=== PATIENT | female | born 1985 | race African-American/Black ===

== ENCOUNTER 2016-02-24 20:03 | Emergency (ER) | payer SELFPAY ==
[2016-02-24 20:17] VITALS: BP 129/73; PULSE 100; TEMP 99.3; BMI 39.3
--- NOTE | 2016-02-24 20:29 | EDPRACDOC ---
- General Information Chief Complaint: Sore Throat Stated Complaint: SORE THROAT Time Seen by Provider: 02/24/16 20:24 Information Source: Patient Mode Of Arrival: Car Home Medications: Home Medications Clindamycin [Cleocin] 300 mg PO TID #60 capsule 02/24/16 Allergies/Adverse Reactions: Allergies Allergy/AdvReac Type Severity Reaction Status Date / Time Penicillins Allergy Hives* Verified 02/24/16 20:17 - History of Present Illness Onset: 2 DAYS HPI: SORE THROAT PAINFUL SWALLOWING AND CHILLS FOR SEVERAL DAYS. Sore Throat Symptoms: Reports: Pain White Spots Location: Reports: Other (TONSILS) Recent: Reports: None Relevant History of: Reports: None Pain Severity: Reports: Mild Urinary Output: Normal Oral Intake: Normal Associated Signs and Symptoms: Reports: Chills, Other (SORE THROAT) ED Past Medical History - History Reviewed Yes Nurses notes reviewed and agree except as marked Travel Outside of [place] in the Last 3 Months?: No No Past Medical History: Yes Patient has no past medical history - Social Medical History ETOH: None Substance Abuse: None Lives With: Other Lives In: Home EDM Review of Systems - Review of Systems ROS Negative Except as Marked: Yes All systems reviewed and were negative except as marked Constitutional: Chills. negative: Fever, Fatigue, Loss of Appetite, Weakness Eyes: No Symptoms Reported. negative: Redness, Blurred Vision, Double Vision, Discharge, Pain, Light Sensitive, Photophobia Ears: No Symptoms Reported. negative: Pain, Hearing Loss, Drainage, Ear Pulling Throat: Pain, Swelling, Lymphadenopathy, Erythema Nose: No Symptoms Reported. negative: Congestion, Bleeding, Discharge, Injection, Swelling, Deformity, Ecchymosis, Tender, Abrasion, Laceration Mouth: No Symptoms Reported. negative: Pain, Drooling Respiratory: No Symptoms Reported. negative: Cough, Brassy Cough, Barky Cough, Shortness of Breath, Wheezing, Hemoptysis Cardiovascular: No Symptoms Reported. negative: Chest Pain, Palpitations, Syncope, Edema, Orthopnea, PND, Skin Mottling, Cyanosis Gastrointestinal: No Symptoms Reported. negative: Pain, Constipation, Nausea, Vomiting, Diarrhea, Melena, Formula Intolerance Genitourinary: No Symptoms Reported. negative: Dysuria, Hematuria, Frequency, Discharge, Bleeding, Testicular Pain, Neurological: No Symptoms Reported. negative: Headache, Dizziness, Seizure, Numbness, Weakness, Speech Difficulty, Gait Difficulty Musculoskeletal: No Symptoms Reported. negative: Neck, Chestwall, Ribs, Back, Shoulder, Arm, Elbow, Forearm, Wrist, Hand, Pelvis, Hip, Femur, Knee, Leg, Ankle , Foot Integumentary: No Symptoms Reported. negative: Itching, Rash, Bruising, Wound Allergic/Immunologic: No Symptoms Reported. negative: Hives, Itching Hematologic: No Symptoms Reported. negative: Lymphadenopathy, Easy Bruising, Easy Bleeding Endocrine: No Symptoms Reported. negative: Weight Gain, Weight Loss Psychiatric: No Symptoms Reported. negative: Anxiety, Depression, Hallucinations, Insomnia, Suicidal - Physical Exam Constitutional: No apparent distress, Alert (Awake) Oriented to: Time, Person, Place Last recorded Vital Signs: Last Vital Signs Temp 99.3 F 02/24/16 20:13 Pulse 100 02/24/16 20:13 Resp 20 02/24/16 20:13 BP 129/73 02/24/16 20:13 Pulse Ox 98 02/24/16 20:13 Oxygen Pulse Oxygen Saturation 98 O2 Device Room Air Oxygen Flow Rate Fraction of Inspired Oxygen ( FIO2) - HEENT Head: Normal ( normocephalic) Eye Exam: Normal (PERRL, EOMI, Sclera white) Oropharynx: Red, Tonsillar Hypertrophy, White [place] Tympanic Membrane: Normal ENT EAC: Normal TMJ: Normal Nose: No Symptoms Reported (septum midline) Neck: Lymphadenopathy (ANTERIOR CERVICAL BILATERAL) - Respiratory/Cardiovascular Respiratory: Normal - CTA (BBS clear to auscultation without adventitious sounds ) Cardiovascular: Normal (RRR without murmur, gallop or rub) - GI Auscultation: Normal (NABS) Palpation: Normal (Soft,No rebound or guarding, non distended) Tenderness: Non tender Paulson's Sign: Negative - Musculoskeletal Back: Normal (Non-Tender) Extremities: Normal (Normal tone, Pulses 2+ No cyanosis or edema, FROM) - Integumentary Skin: Normal, Warm, Dry Lymphatics: Normal (no adenopathy) - Neurologic Memory Impaired: Normal Motor Function: Normal (Normal tone, Pulses 2+ No cyanosis or edema, FROM) Cranial Nerve: Normal (CN II-X11 intact sensation, strength 5/5) Cerebellar: Normal Mood Description: Normal Perception: Normal - Differential Diagnosis Peritonsillar abscess, Pharyngitis Streptococcal, Pharyngitis Viral Decision Time to Discharge: 20:28 - Departure Disposition: Home Condition: Stable Final Diagnosis: Acute pharyngitis Instructions: Pharyngitis (ED) Education/Counseling Given To: Patient Education/Counseling Given Regarding: Diagnosis, Treatment, Prognosis, Follow Up Referrals: None,No Provider [Primary Care Provider] - One Week Prescriptions: Clindamycin [Cleocin] 300 mg PO TID #60 capsule Additional Instructions: RETURN FOR WORSE OR DIFFERENT SYMPTOMS. MOTRIN AND TYLENOL IF FEVERS DEVELOP. CHANGE YOUR TOOTHBRUSH AFTER SYMPTOMS RESOLVE.
== END 2016-02-24 20:38 | disposition home or self-care (01) ==
LOC: EDMC 20:03
DX: J02.9 Acute pharyngitis, unspecified (principal)
CPT/HCPCS: 99283